=== PATIENT | female | born 1955 | race Caucasian/White ===

== ENCOUNTER → 2018-10-29 | Outpatient (REF) | payer OTHER ==
[~2018-10-29] MED LIST: ECOT325T5; HYDR25TA6; KLOR10TA; LISI20TA5; VITA500T; ZANT150T
== END ==
LOC: M LAB LCGH 14:34
PROVIDERS: ATTEND Nurse Practitioner Adult Health
DX: Z12.4 Encounter for screening for malignant neoplasm of cervix (principal)